=== PATIENT | female | born 1945 | race Caucasian/White ===

== ENCOUNTER → 2019-09-14 | Outpatient (CLI) | payer MEDICARE ==
[~2019-09-14] MED LIST: ALLO100 PO; AMLO5 PO; Amaryl1 MG PO; CLON.1 PO; FURO40 PO; GABA100 PO; INSDET100; LEVFLO250 PO; LEVSOD100 PO; LOSA50 PO; METF500 PO; METO50; Norco 5-325 Ta1 EACH PO; OMEP20ER; POTCHL20ER PO; PRAVASTATIN SOD10 MG PO; VICODIN ES 7.51 EACH PO; Zofran4 MG PO
[2019-09-14 13:29] LABS: BASOPHILS ABSOLUTE AUTO 0.03 K/mm3 (0.00-0.23); BASOPHILS PERCENT AUTO 0 % (0-2); EOSINOPHILS ABSOLUTE AUTO 0.01 K/mm3 (0.00-0.68); EOSINOPHILS PERCENT AUTO 0 % (0-6); Hematocrit 37.8 % (33.0-51.0); Hemoglobin 12.5 g/dL (11.5-16.0); IMMATURE GRAN ABSOLUTE AUTO 0.04 K/mm3 (0.00-0.10); IMMATURE GRAN PERCENT AUTO 0 % (0-1); LYMPHOCYTES ABSOLUTE AUTO 0.83 K/mm3 (0.84-5.20); LYMPHOCYTES PERCENT AUTO 7 % (21-46); MONOCYTES PERCENT AUTO 8 % (4-13); Mean Corpuscular HGB 30.6 pg (26.0-34.0); Mean Corpuscular HGB Conc 33.1 g/dL (31.5-36.5); Mean Corpuscular Volume 93 fL (80-100); Mean Platelet Volume 10.4 fL (9.1-12.4); NEUTROPHILS ABSOLUTE AUTO 10.07 K/mm3 (1.96-9.15); NEUTROPHILS PERCENT AUTO 84 % (41-73); Platelet Count 130 K/mm3 (150-400); RDW Coefficient Variation 13.5 % (11.7-14.2); RDW Standard Deviation 45.9 fL (35.1-46.3); Red Blood Cell Count 4.08 M/mm3 (3.80-5.20); White Blood Cell Count 11.98 K/mm3 (4.00-11.30)
[2019-09-14 14:02] LABS: Albumin, Blood 3.7 g/dL (3.4-5.0); Albumin/Globulin Ratio 1.1 (0.8-1.8); Bilirubin, Total 0.9 mg/dL (0.1-1.0); Bun/Creatinine Ratio 16.5 (12.0-20.0); Calcium, Blood 8.8 mg/dL (8.5-10.1); Creatinine, Blood 1.09 mg/dL (0.40-1.00); Globulin, Blood 3.4 g/dL (2.2-4.0); Potassium, Blood 3.6 mmol/L (3.5-5.5); Total Protein, Blood 7.1 g/dL (6.4-8.2)
== END | disposition home or self-care (01) ==
LOC: LAB EV 13:24 → LAB SHORT 13:24
PROVIDERS: Physician Assistant
DX: N39.0 Urinary tract infection, site not specified (principal); R11.2 Nausea with vomiting, unspecified
CPT/HCPCS: 80053; 83690; 85025; 87077; 87086; 87186

== ENCOUNTER 2019-12-23 11:40 | Emergency (ER) | payer MEDICARE ==
[~2019-12-23] VITALS: Ht 154.9 cm; Wt 86.2 kg
[2019-12-23] MEDS ORDERED: Zovirax800 MG PO (12:00)
== END 2019-12-23 12:12 | disposition home or self-care (01) ==
LOC: ER 11:40
DX: G51.0 Bell's palsy (principal); I10 Essential (primary) hypertension; E11.9 Type 2 diabetes mellitus without complications; E03.9 Hypothyroidism, unspecified; Z91.018 Allergy to other foods; Z88.2 Allergy status to sulfonamides; Z79.899 Other long term (current) drug therapy; Z79.4 Long term (current) use of insulin; Z87.891 Personal history of nicotine dependence
CPT/HCPCS: 99283

== ENCOUNTER 2020-02-05 06:26 | Day surgery (SDC) | payer MEDICARE ==
[~2020-02-05] VITALS: Ht 157.5 cm; Wt 88.3 kg
[~2020-02-05 06:26] MED LIST changes: -INSDET100; +INSDET100 SC; +METO25ER PO; -METO50; -OMEP20ER; +OMEP20ER PO; +POTA10T PO; -POTCHL20ER PO; +PRAV20 PO; +Zovirax800 MG PO
[2020-02-05] MEDS ORDERED: ATOR20 PO (06:52)
[2020-02-05] MEDS ORDERED: HUMALOG100 UNIT/1 SC (06:56)
--- NOTE | 2020-02-05 08:52 | NUR ---
0818 PATIENT ARRIVED BACK FROM PROCEDURE ROOM. S/P RENAL ANGIOGRAM AND INTERVENTION. RIGHT GROIN ACCESS SITE WITH CLOSURE DEVICE, ANGIOSEAL, SIOTE CDI, NO HEMATOMA, SOFT, AND 2+ PEDAL PULSE DP/PT. NO PAIN NOTED. MONITOR IN PLACE AND CALL LIGHT IN REACH. VVS. HOB FLAT AND SIDE RAILS UP X 2
--- NOTE | 2020-02-05 09:28 | NUR ---
0928 PATIENT AWAKE AND EATING BREAKFAST TRAY, HOB UP 15 DEGREES. VVS, NO PAIN NOTED FROM THE PATIENT, RIGHT GROIN SOFT, NO HEMATOMA,
--- NOTE | 2020-02-05 11:13 | NUR ---
[address] [facility] NOTIFIED AND CAME TO THE BEDSIDE AND SPOKE AT LENGTH TO THE PATIENT AND HER . ALL QUESTIONS ANSWERED.
--- NOTE | 2020-02-05 11:24 | NUR ---
1120 PATIENT UP TO [facility] RESTROOM, VOIDED WITHOUT DIFFICULTY. ALL BELONGINGS GATHERED AND DRESSED SELF. PIV REMOVED, CATHETER TIP INTACT AND PRESSURE DRESSING APPLIED.
--- NOTE | 2020-02-05 11:54 | NUR ---
1135 PATIENT DISCHARGED VIA WHEEL CHAIR TO PRIVATE VEHICLE WITH DRIVING.
== END 2020-02-05 11:00 | disposition home or self-care (01) ==
LOC: MHTC 06:26
DX: I70.1 Atherosclerosis of renal artery (principal); I12.9 Hypertensive chronic kidney disease with stage 1 through stage 4 chronic kidney disease, or unspecified chronic kidney disease; E11.22 Type 2 diabetes mellitus with diabetic chronic kidney disease; N18.2 Chronic kidney disease, stage 2 (mild); N28.81 Hypertrophy of kidney; E78.5 Hyperlipidemia, unspecified; E03.9 Hypothyroidism, unspecified; Z87.891 Personal history of nicotine dependence; Z79.899 Other long term (current) drug therapy; Z88.2 Allergy status to sulfonamides; Z79.84 Long term (current) use of oral hypoglycemic drugs
CPT/HCPCS: 36251-RT; 36253-LT; 37246; 75774; 99152; 99153; C1725; C1760; C1769; C1887; C1894; J1644; J2250; J3010; J7030; Q9967

== ENCOUNTER → 2021-08-11 | Outpatient (CLI) | payer MEDICARE ==
[~2021-08-11] MED LIST changes: +ATOR20 PO; +HUMALOG100 UNIT/1 SC
[2021-08-11 14:11] LABS: Stool Occult Bld Immuno 1 Negative (NEGATIVE)
== END | disposition home or self-care (01) ==
LOC: LAB SHORT 10:00
PROVIDERS: Internal Medicine Nephrology
DX: N18.30 Chronic kidney disease, stage 3 unspecified (principal); D63.1 Anemia in chronic kidney disease; N25.81 Secondary hyperparathyroidism of renal origin; E55.9 Vitamin D deficiency, unspecified; E78.00 Pure hypercholesterolemia, unspecified; R76.9 Abnormal immunological finding in serum, unspecified; R94.5 Abnormal results of liver function studies; R94.6 Abnormal results of thyroid function studies
CPT/HCPCS: G0328

== ENCOUNTER 2022-02-19 09:51 | Day surgery (SDC) | payer MEDICARE ==
[~2022-02-19] VITALS: Ht 154.9 cm; Wt 69.7 kg
[~2022-02-19 09:51] MED LIST changes: +Aspir 8181 MG PO; +INSULANI SC; +OZEMPIC1 MG/0.72 SC
--- NOTE | 2022-02-19 15:28 | NUR ---
02/19/22 1528 VIRI ALLEN LATE ENTRY: DUE TO MEDITECH FREEZING SEDATION NURSE OUT OF PT CHART, RN MANUALLY CHARTED ASSESSMENTS. PT BP MAINTAINED WITHIN 20 POINTS SYSTOLIC/DIASTOLICALLY WITH THE EXCEPTION OF THE INITIAL FIRST FIVE MINUTES OF SEDATION ADMINISTRATION 1115 BP201/85 HR 84 RR 20 O2 98% 10L VIA POM 1116 BP 187/92 HR 79 RR 20 O2 98 10L VIA POM 1121 BP 185/96 HR 76 RR 18 O2 96% 10L VIA POM 1125 HR 69 RR 16 O2 97% VIA POM 10L O2 1131 HR76 1135 BP 150/78 HR 78 RR 16 O2 96% 10L VIA POM
== END 2022-02-19 12:18 | disposition home or self-care (01) ==
LOC: ORSCSDS 09:51
PROVIDERS: Surgery
PROC: 0DJD8ZZ Inspection of Lower Intestinal Tract, Via Natural or Artificial Opening Endoscopic (ICD-10-PCS; principal; 2022-02-19 11:30)
DX: Z12.11 Encounter for screening for malignant neoplasm of colon (principal); Z86.010 Personal history of colon polyps; I12.9 Hypertensive chronic kidney disease with stage 1 through stage 4 chronic kidney disease, or unspecified chronic kidney disease; N18.30 Chronic kidney disease, stage 3 unspecified; E78.5 Hyperlipidemia, unspecified; E03.9 Hypothyroidism, unspecified; G47.33 Obstructive sleep apnea (adult) (pediatric); Z87.891 Personal history of nicotine dependence; E11.9 Type 2 diabetes mellitus without complications; Z79.82 Long term (current) use of aspirin; Z79.4 Long term (current) use of insulin; Z79.899 Other long term (current) drug therapy
CPT/HCPCS: 82947; J0461; J2405; J2704; J7120

== ENCOUNTER 2022-07-15 08:16 | Day surgery (SDC) | payer MEDICARE ==
[~2022-07-15] VITALS: Ht 154.9 cm; Wt 67.6 kg
== END 2022-07-15 11:13 | disposition home or self-care (01) ==
LOC: ORSCSDS 08:16
PROVIDERS: Surgery
PROC: 0DB68ZX Excision of Stomach, Via Natural or Artificial Opening Endoscopic, Diagnostic (ICD-10-PCS; principal; 2022-07-15 09:45)
DX: K92.1 Melena (principal); K31.7 Polyp of stomach and duodenum; I10 Essential (primary) hypertension; E03.9 Hypothyroidism, unspecified; G47.33 Obstructive sleep apnea (adult) (pediatric); E11.9 Type 2 diabetes mellitus without complications; Z87.891 Personal history of nicotine dependence; Z79.899 Other long term (current) drug therapy; Z79.84 Long term (current) use of oral hypoglycemic drugs
CPT/HCPCS: 82947; 88305; J2704; J7120

== ENCOUNTER 2023-02-12 12:47 | Emergency (ER) | payer MEDICARE ==
[~2023-02-12] VITALS: Ht 157.5 cm; Wt 65.8 kg
[2023-02-12 14:19] LABS: BASOPHILS ABSOLUTE AUTO 0.01 K/mm3 (0.00-0.23); BASOPHILS PERCENT AUTO 0 % (0-2); EOSINOPHILS PERCENT AUTO 0 % (0-6); Hematocrit 33.1 % (33.0-51.0); Hemoglobin 11.2 g/dL (11.5-16.0); IMMATURE GRAN ABSOLUTE AUTO 0.03 K/mm3 (0.00-0.10); IMMATURE GRAN PERCENT AUTO 0 % (0-1); LYMPHOCYTES ABSOLUTE AUTO 0.54 K/mm3 (0.84-5.20); LYMPHOCYTES PERCENT AUTO 6 % (21-46); MONOCYTES ABSOLUTE AUTO 0.16 K/mm3 (0.16-1.47); MONOCYTES PERCENT AUTO 2 % (4-13); Mean Corpuscular HGB 32.8 pg (26.0-34.0); Mean Corpuscular HGB Conc 33.8 g/dL (31.5-36.5); Mean Corpuscular Volume 97 fL (80-100); Mean Platelet Volume 10.5 fL (9.1-12.4); NEUTROPHILS ABSOLUTE AUTO 7.86 K/mm3 (1.96-9.15); NEUTROPHILS PERCENT AUTO 91 % (41-73); Platelet Count 175 K/mm3 (150-400); RDW Coefficient Variation 13.5 % (11.7-14.2); RDW Standard Deviation 48.4 fL (35.1-46.3); Red Blood Cell Count 3.41 M/mm3 (3.80-5.20)
[2023-02-12 16:10] LABS: Albumin/Globulin Ratio 1.1 (0.8-1.8); Bilirubin, Total 0.4 mg/dL (0.1-1.0); Bun/Creatinine Ratio 16.5 (12.0-20.0); Calcium, Blood 10.3 mg/dL (8.5-10.1); Creatinine, Blood 1.82 mg/dL (0.40-1.00); Globulin, Blood 3.8 g/dL (2.2-4.0); Potassium, Blood 4.1 mmol/L (3.5-5.5); Total Protein, Blood 7.8 g/dL (6.4-8.2)
[2023-02-12] MEDS ORDERED: ONDA4ODT SL (18:41)
[2023-02-12 18:45] VITALS: BP 129/60
== END 2023-02-12 18:54 | disposition home or self-care (01) ==
LOC: ER 12:47
PROVIDERS: Physician Assistant
DX: K52.9 Noninfective gastroenteritis and colitis, unspecified (principal); N18.9 Chronic kidney disease, unspecified; E86.0 Dehydration; D63.1 Anemia in chronic kidney disease; I12.9 Hypertensive chronic kidney disease with stage 1 through stage 4 chronic kidney disease, or unspecified chronic kidney disease; Z88.2 Allergy status to sulfonamides; Z88.8 Allergy status to other drugs, medicaments and biological substances; Z91.041 Radiographic dye allergy status; Z91.018 Allergy to other foods; Z79.899 Other long term (current) drug therapy; Z79.84 Long term (current) use of oral hypoglycemic drugs; Z79.82 Long term (current) use of aspirin; E11.22 Type 2 diabetes mellitus with diabetic chronic kidney disease; E03.9 Hypothyroidism, unspecified; Z87.891 Personal history of nicotine dependence
CPT/HCPCS: 80053; 83690; 85025; 96361; 96374; 96375; 99284-25; J1790; J2405; J7030; J7120

== ENCOUNTER → 2024-01-12 | Outpatient (CLI) | payer MEDICARE ==
[~2024-01-12] MED LIST changes: +ONDA4ODT SL
[2024-01-13 11:04] LABS: Creatinine Urine 58.8 mg/dL (27.00-270.00); Microalbumin, Urine Quant. 26.2 mg/L (0.000-20.000); Protein, Urine Quantitative 13.8 mg/dL (0.0-11.9)
== END ==
LOC: LAB 08:49 → LAB SHORT 08:49
PROVIDERS: Internal Medicine Nephrology
DX: N18.30 Chronic kidney disease, stage 3 unspecified (principal); D63.1 Anemia in chronic kidney disease; N25.81 Secondary hyperparathyroidism of renal origin; E55.9 Vitamin D deficiency, unspecified; E78.00 Pure hypercholesterolemia, unspecified; R76.9 Abnormal immunological finding in serum, unspecified; R94.5 Abnormal results of liver function studies; R94.6 Abnormal results of thyroid function studies
CPT/HCPCS: 81050; 82043; 82570; 84156

== ENCOUNTER → 2024-04-19 | Outpatient (CLI) | payer MEDICARE | LOC: LAB SHORT 14:59 → LAB 14:59 | DX: N39.0 Urinary tract infection, site not specified (principal) | CPT/HCPCS: 87077; 87086; 87186 ==

== ENCOUNTER → 2025-02-19 | Outpatient (CLI) | payer MEDICARE | END | disposition home or self-care (01) | LOC: LAB SHORT 16:21 → LAB 16:21 | DX: N39.0 Urinary tract infection, site not specified (principal) | CPT/HCPCS: 87086 ==